=== PATIENT | male | born 1930 | race Caucasian/White ===

== ENCOUNTER → 2017-06-03 | Outpatient (CLI) | payer MEDICARE, OTHER ==
[~2017-06-03] MED LIST: ACETAMINOPHEN325 M1 PO; ADULT LOW DOSE81 MG PO; ARIXTRA; ASPIRIN325 PO; COLACE 100 MG100 MG PO; COLACE100 MG PO; FINASTERIDE; FINASTERIDE5 MG PO; FLOMAX PO; FLOMAX0.4 MG PO; METAMUCIL PAC1 UDPK1; MOBIC7.5 M1 PO; NORCO 5-325 TA1 EACH PO; OXYCODONE HCL 55 MG; OXYCODONE HCL 55 MG PO; PERCOCET 5-3251 EACH; PERCOCET PO; PROSTATE SR SO1 EACH PO; PROTONIX40 M2 PO; ROBAXIN500 MG PO; TAMSULOSIN HCL0.4 M1 PO; XARELTO10 MG PO; [UNRECOGNIZED DRUG - OTHER] PO
[2017-06-03 11:12] LABS: HEMATOCRIT 43.9 % (42.0-52.0); MCH 29.9 pg (26.0-34.0); MCHC 34.1 g/dL (28.0-37.0); MCV 87.8 fL (80.0-100.0); MPV 8.1 fl. (7.2-11.1); RDW-CV 13.5 % (10.5-14.5); WBC 7.7 thou/uL (4.0-11.0)
[2017-06-03 11:49] LABS: ALBUMIN 3.4 g/dL (3.4-5.0); CALCIUM 8.5 mg/dL (8.5-10.1); CREATININE 1.1 mg/dL (0.6-1.3); POTASSIUM 3.9 mmol/L (3.5-5.1); TOTAL BILIRUBIN 0.9 mg/dL (<0.1-1.0); TOTAL PROTEIN 7.2 g/dL (6.4-8.2)
== END ==
LOC: M.LAB 10:42
PROVIDERS: Internal Medicine Gastroenterology
DX: R10.9 Unspecified abdominal pain (principal); R63.0 Anorexia; N40.0 Benign prostatic hyperplasia without lower urinary tract symptoms; K21.9 Gastro-esophageal reflux disease without esophagitis

== ENCOUNTER 2018-04-18 11:34 | Inpatient (IN) | payer MEDICARE, OTHER ==
[~2018-04-18] VITALS: Ht 180.3 cm; Wt 88.9 kg
[2018-04-18 11:35] VITALS: BP 153/89
[2018-04-18 12:27] LABS: ABSOLUTE MONOCYTES 0.5 thou/uL (0.0-1.2); ABSOLUTE NEUTROPHILS 6.5 thou/uL (1.6-8.1); BASOPHILS 0.3 %; EOSINOPHILS 0.6 %; HEMATOCRIT 42.5 % (42.0-52.0); HEMOGLOBIN 14.2 gm/dL (14.0-18.0); LYMPHOCYTES 12.2 %; MCH 29.4 pg (26.0-34.0); MCHC 33.5 g/dL (28.0-37.0); MCV 87.9 fL (80.0-100.0); MONOCYTES 6.3 %; MPV 8.5 fl. (7.2-11.1); NUCLEATED RBCS 0 /100WBC; PLATELET COUNT* 210 thou/uL (150-400); POLYS 80.6 %; RBC 4.84 mil/uL (4.50-6.00); RDW-CV 13.8 % (10.5-14.5); WBC 8.1 thou/uL (4.0-11.0)
[2018-04-18 12:39] LABS: ANION GAP 9 mmol/L (7-16); BUN 15 mg/dL (7-18); CALCIUM 8.8 mg/dL (8.5-10.1); CHLORIDE 104 mmol/L (98-107); CO2 26 mmol/L (21-32); CREATININE 1.1 mg/dL (0.6-1.3); GLUCOSE 105 mg/dL (70-99); POTASSIUM 4.3 mmol/L (3.5-5.1); SODIUM 139 mmol/L (136-145)
[2018-04-18 12:44] LABS: ALBUMIN 3.2 g/dL (3.4-5.0); ALKALINE PHOSPHATASE 93 U/L (46-116); SGOT 12 U/L (15-37); SGPT 14 U/L (30-65); TOTAL BILIRUBIN 0.8 mg/dL (<0.1-1.0); TOTAL PROTEIN 6.9 g/dL (6.4-8.2); TROPONIN-I LEVEL <0.06 ng/mL (<0.06)
[2018-04-18 16:35] VITALS: BP 153/93
[2018-04-18 16:47] LABS: URINE BILIRUBIN NEGATIVE (Negative); URINE BLOOD NEGATIVE (Negative); URINE CLARITY CLEAR; URINE COLOR YELLOW; URINE GLUCOSE-RANDOM NEGATIVE (Negative); URINE KETONES NEGATIVE (Negative); URINE LEUKOCYTES-REFLEX NEGATIVE (Negative); URINE NITRITE-REFLEX NEGATIVE (Negative); URINE PROTEIN NEGATIVE (Negative); URINE UROBILINOGEN 0.2 E.U./dl (0.2-1.0)
[2018-04-18 17:05] VITALS: BP 142/79; BP 142/81; BP 144/85
--- NOTE | 2018-04-18 17:21 | NUR ---
PATIENT ADMITTED TO ROOM 313 FROM ER. ALERT AND ORIENTED X 4, ALTHOUGH PATIENT DID TELL NURSE HIS BIRTHDATE WAS 3 INSTEAD OF [birth year]. PATIENT QUICKLY CORRECTED HIMSELF WHEN NURSE BROUGHT TO PATIENTS ATTENTION. ORTHOSTATICS NEGATIVE, VITALS STABLE. SR ON TRACING ON SLOT ROUTER. NO SKIN BREAKDOWN NOTED. REFUSING SCD'S. REG DIET. CARDIOLOGY AND NEURO CONS PLACED, AWAITING CALL BACK. ECHO ORDERED FOR AM. IVF INFUSING X 2 BAGS PER ORDERS. ORIENTED TO CALL LIGHT. FALL RISK PROTOCOL IN PLACE. CALL LIGHT WITHIN REACH, WILL CONTINUE TO MONITOR.
[2018-04-18 19:40] VITALS: BP 112/86
[2018-04-19 00:11] VITALS: BP 142/71
[2018-04-19 04:39] VITALS: BP 135/95
[2018-04-19 04:51] LABS: CHOLESTEROL 186 mg/dL (<200); HDL CHOLESTEROL 51 mg/dL (>40); LDL CHOLESTEROL 122 mg/dL (<100); TC:HDL 3.6 Ratio (Not establshd); TRIGLYCERIDE 67 mg/dL (<150); VLDL 13 mg/dL (<40)
[2018-04-19 04:52] LABS: SERUM ASSESSMENT CLEAR
--- NOTE | 2018-04-19 06:21 | NUR ---
ASSESSMENT COMPLETE. PT SLEPT THROUGH THE NIGHT WITHOUT ANY CONCERNS. NSR ON TELE MONITOR. VITALS STABLE, AFEBRILE. PT IS ON ROOM AIR WITH ADEQUATE SATS. DENIES PAIN AND N/V. PT IS FALL RISK, BED ALARM ON. STANDBY ASSIST TO BATHROOM. IV FLUIDS INFUSING. SEE ASSESSMENT AND VITALS FOR OTHER DETAILS. CALL LIGHT WITHIN REACH, WILL CONTINUE PLAN OF CARE
[2018-04-19 08:00] VITALS: BP 147/81
[2018-04-19 11:35] VITALS: BP 154/77
--- NOTE | 2018-04-19 11:40 | EKG ---
[place] [address] ELECTROCARDIOGRAM REPORT Name: MARKUS WOODARD Room: [address] ADM IN ..#: [id number] Admission: 04/18/18 Attend Phys: Pierce Yang MD Discharge: Date of : 34 Report #: [id number] THIS REPORT FOR: //name// [facility] ED Test Date: 2018-04-18 Test Time: 11:36:57 Pat Name: MARKUS WOODARD Department: Room: [facility] Gender: Gleason Gear Generator: Bibi ARAIZA : 1930 Requested By: Radha Enriquez Order Number: [id number] MD: Kartik Hensley Measurements Intervals [place] Rate: 58 P: 35 VA: 176 QRS: 26 QRSD: 85 T: 56 QT: 429 QTc: 422 Interpretive Statements Sinus rhythm Abnormal R-wave progression, early transition artifact noted Compared to ECG 08/30/2014 09:28:03 no change Electronically Signed On 04-19-2018 11:40:36 [employer] by Kartik Hensley [email or web address] <ELECTRONICALLY SIGNED> By: Kartik Hensley MD, FACDianna 04/19/18 1140 1136 1136 Kartik Hensley MD, [facility] /EPI
[2018-04-19 15:38] VITALS: BP 153/77
--- NOTE | 2018-04-19 17:23 | NUR ---
SW met with pt to complete initial assessment, introduce self, and SW role. Pt alert, oriented. Pt lives at home with and plans to dc there at dc. Pt independent with adls and mobility. Pt has hx of [facility] after knee surgery years ago. Pt has a cane and RW if needed. SW to continue to follow.
--- NOTE | 2018-04-19 17:30 | NUR ---
DR. SEGURA FROM CARDIOLOGY SAW PATIENT THIS AM, AWAITING RECORDS FROM [facility] FOR FURTHER TESTING. DR. MCKENZIE SAW PATIENT THIS AM, ALSO AWAITING RECORDS FROM [facility]. IVF SL THIS SHIFT PER ORDERS. NO COMPLAINTS OF PAIN. UP WITH SBA. DR. MCKENZIE WAS PAGED AND AWAITING CALLING BACK, ORDERS WERE TO BE NOTIFIED WHEN RECORDS AVAILABLE. RECORDS PLACED ON FRONT OF CHART. CNC SET UP OPERATOR TRACING SR WITH PVC'S.
[2018-04-19 22:08] LABS: GLYCOHEMOGLOBIN (HGB A1C) 5.2 % (4.8-5.6)
[2018-04-20] VITALS: BP 158/80
[2018-04-20 03:50] VITALS: BP 131/78
--- NOTE | 2018-04-20 05:49 | NUR ---
PT SLEPT WELL OVERNIGHT, UP WITH SBA TO BR TO VOID. TELE SR WITH OCC PAUSES. SL IV. NO LABS THIS MORNING. DENIES PAIN OR PROBLEMS. ANTICIPATING DISCHARGE HOME WITH MONITOR.
[2018-04-20 08:01] VITALS: BP 161/75
[2018-04-20 11:06] VITALS: BP 161/75
--- NOTE | 2018-04-20 14:08 | NUR ---
PT DC'D HOME WITH ALL BELONGINGS. PT DENIES DIZZINESS OR LIGHTHEADEDNESS. IVS REMOVED INTACT BEFORE DISMISSAL. PT ACKNOWLEDGED DC INSTRUCTIONS.
--- NOTE | 2018-04-24 15:44 | CON ---
[address] [address] CONSULTATION Name: MARKUS WOODARD Room: [address] IN .R.#: [id number] Admission: 04/18/18 Attend Phys: Pierce Yang MD Discharge: 04/20/18 Date of : 34 Report #: [id number] THIS REPORT FOR: //name// CC: Pierce Stewart DATE OF SERVICE: 04/19/2018 HISTORY OF PRESENT ILLNESS: This is an 87-year-old male patient who was evaluated by me for looking for any neurological etiology for the patient's syncope. He gives a complicated history that he was in the taoism, his heart started racing. He tried to see if he can get back to the bench, he never made it there and he passed out. There was no tonic-clonic activity. There was no postictal spell. Apparently, he was at [facility] and they did an extensive workup. He also was in [place] and they also did an extensive workup there. He indicated he had an MRI done. I do not have any of that workup with me. REVIEW OF SYSTEMS: Indicate that his 14-point review of system was carried out. He does not have this symptom except recently. He had some prior episodes, but these were more severe. He denies any prior history of stroke. He has a history of multiple injuries, but I do not know what the injuries were from. During this time, he did not have any injury. He had some prostate tissue, but he has taken Flomax for a long time without any change in dosages. He had multiple joint replaced. Otherwise, he is not complaining of any eye, ENT, cardiac, respiratory, GI, , musculoskeletal, constitutional, dermatological, hematological, psychiatric, throat, allergic symptom associated with present symptomatology. PAST MEDICAL HISTORY: Positive for similar syncope, but only recently. He also has some arthralgia. FAMILY HISTORY: Negative for any early age stroke. SOCIAL HISTORY: Unremarkable. PHYSICAL EXAMINATION: Indicate, he is alert, he is responsive. He can follow simple and complex command. His cranial nerve examinations appear unremarkable. His strength, sensation, reflexes and tone is symmetrical. There is no cerebellar sign. There is no papilledema. There is no carotid bruit. He is a well-developed individual who does not have any dysmorphic features of eyes, ears and face. His vision and hearing looks adequate. His pulses are palpable. He has no edema, cyanosis or jaundice. Cardiac examinations appear unremarkable. No respiratory difficulty or rhonchi was noticed. His blood pressure is 147/81, respiration is 18, pulse is 87, temperature [place] 98[place] [address] CONSULTATION Name: MARKUS WOODARD Room: [address]#: [id number] Admission: 04/18/18 Attend Phys: Pierce Yang MD Discharge: 04/20/18 Date of : 34 Report #: [id number] LABORATORY DATA: His white count is 8.0 and his sodium is normal. He did have a CT scan of the head, which was unremarkable. IMPRESSION: The patient's episode appeared to be cardiac in origin. However, I do not have prior records to see what workup was done at [place]. If he did not have MRI/MRA and EEG, he needs one. If he already had that, then the workup should be directed to look for any cardiac cause for his symptoms. RECOMMENDATIONS: 1. They have already called for the record from the patient in [place]. 2. We will look at those records once is available. 3. I discussed that aspect with the patient. The patient does not want to repeat that workup if he does not have to. We will await the records and look at it and decide about further management. <ELECTRONICALLY SIGNED> By: Frank Schilling MD 04/24/18 1544 1127 [id number] Schilling MD /nt
--- NOTE | 2018-04-26 13:08 | CON ---
[address] [address] CONSULTATION Name: MARKUS WOODARD Room: [address] IN ..#: [id number] Admission: 04/18/18 Attend Phys: Pierce Yang MD Discharge: 04/20/18 Date of : 34 Report #: [id number] THIS REPORT FOR: //name// CC: Sp Stewart DATE OF SERVICE: 04/19/2018 HISTORY OF PRESENT ILLNESS: The patient is an 87-year-old white male who I was asked to see in the hospital after he had a syncopal spell. The patient has had several hospitalizations here at [facility] in the past. He was actually admitted here back in 2008 with a dizzy spell. 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 In 2012, he was here at [facility] and underwent hip surgery. He was admitted here in 2014 and underwent shoulder surgery. He stays active, still working on his farm. He notes that about 6 weeks ago he went to see his doctor. In the waiting room he felt lightheaded. He apparently was admitted to the hospital in [place], [place] for 24 hours. He was then transferred to [place] for 3 days. He apparently underwent extensive evaluation. No cause of the syncope was discovered. He was discharged on no new medications. He has done well since that time until yesterday. He was in [place] when he felt lightheaded. He tried to hold on to something, but eventually fell to the ground. He apparently got nauseated, diaphoretic. He suffered no trauma. Paramedics brought him here to [facility] and he was admitted. He denies recent chest pain, shortness of breath. He does note occasional irregular heartbeat. PAST MEDICAL HISTORY: Significant for shoulder surgery, hip surgery, knee surgery, prostatism. MEDICATIONS: His only medications include Flomax, Proscar. ALLERGIES: HE HAS AN ALLERGY TO PENICILLIN. FAMILY HISTORY: Negative for heart disease. SOCIAL HISTORY: He is , lives on a farm with his . No smoking or alcohol abuse. REVIEW OF SYSTEMS: He has no history of stroke, asthma. He denied any recent vomiting, bleeding. No history of liver disease, kidney disease, cancer, psychiatric illness, chronic skin condition. PHYSICAL EXAMINATION: GENERAL: Revealed an elderly male, lying in bed, he appeared [place] [address] CONSULTATION Name: MARKUS WOODARD Room: [address]#: [id number] Admission: 04/18/18 Attend Phys: Pierce Yang MD Discharge: 04/20/18 Date of : 34 Report #: [id number] VITAL SIGNS: He had a blood pressure of 140/80, pulse is 80s, and afebrile. HEENT: He is anicteric. Conjunctivae pink. Mucous membranes moist. NECK: Veins nondistended. No carotid bruits. Neck supple. CHEST: Clear to auscultation. CARDIAC: Regular rate and rhythm. ABDOMEN: Soft, nontender. EXTREMITIES: Had no edema. Posterior tibial pulse 2+ bilaterally. SKIN: Warm, dry. NEUROLOGIC: Nonfocal. LYMPH: No adenopathy. MUSCULOSKELETAL: No joint effusion. LABORATORY DATA: His ECG on admission showed sinus bradycardia, voltage criteria for left ventricular hypertrophy, but no ST or T-wave change. His workup in the Emergency Room last night, he had a CT scan of the head without contrast that showed no acute abnormality. CT scan of the chest using a PE protocol showed no evidence of pulmonary embolus, aortic dissection. His lab work, sodium 139, creatinine 1.1. Troponin 0.06. Cholesterol 186, triglycerides 67, HDL 51, LDL 122. TSH 2.1. White blood cell count 8.1, hemoglobin 14.2. IMPRESSION AND RECOMMENDATIONS: 1. Syncope. Suspect vasovagal. I will review the results of the extensive workup performed at [facility]. I would recommend no further cardiac workup at this time. I would suggest discharging the patient with an event recorder and I will see the patient back in the clinic in 1 month for followup. 2. Prostatism. 3. Degenerative joint disease. <ELECTRONICALLY SIGNED> By: Kartik Hensley MD, FACC 04/26/18 1308 [id number] Hensley MD, FACC /nt
== END 2018-04-20 14:10 | disposition home or self-care (01) | DRG 309 ==
LOC: M.ERS 11:34 → M.3W 15:37 → M.TBA-ER 15:37 → M.3W 16:00
PROVIDERS: Personal Emergency Response Attendant; ADMIT Internal Medicine
DX: I49.5 Sick sinus syndrome (principal); E44.1 Mild protein-calorie malnutrition; K21.9 Gastro-esophageal reflux disease without esophagitis; N40.0 Benign prostatic hyperplasia without lower urinary tract symptoms; Z96.643 Presence of artificial hip joint, bilateral; M19.90 Unspecified osteoarthritis, unspecified site; Z79.82 Long term (current) use of aspirin; Z79.899 Other long term (current) drug therapy; Z88.0 Allergy status to penicillin